=== PATIENT | male | born 1935 | race Caucasian/White ===

== ENCOUNTER 2019-12-22 09:19 | Emergency (ER) | payer OTHER ==
[~2019-12-22] VITALS: Ht 172.7 cm; Wt 83.9 kg
[~2019-12-22 09:19] MED LIST: INDOCIN50 MG; LIPITOR20 MG; PRILOSEC10 M1
[2019-12-22] MEDS ORDERED: TAMS0.4C (09:49)
[2019-12-22] MEDS ORDERED: CLONAZEPAM0.5 M1 (09:50)
[2019-12-22] MEDS ORDERED: BACTRIM DS TAB1 EACH PO (14:06)
[2019-12-22] MEDS ORDERED: CELEBREX100 MG PO (14:06)
== END 2019-12-22 14:32 | disposition home or self-care (01) ==
LOC: ER 09:19
DX: N39.0 Urinary tract infection, site not specified (principal)

== ENCOUNTER 2021-07-13 10:27 | Emergency (ER) | payer OTHER ==
[~2021-07-13] VITALS: Ht 165.1 cm; Wt 77.1 kg
[~2021-07-13 10:27] MED LIST changes: +BACTRIM DS TAB1 EACH PO; +CELEBREX100 MG PO; +CLONAZEPAM0.5 M1; +TAMS0.4C
== END 2021-07-13 11:38 | disposition home or self-care (01) ==
LOC: ER
DX: M54.32 Sciatica, left side (principal); G62.89 Other specified polyneuropathies

== ENCOUNTER 2024-01-01 09:48 | Emergency (ER) | payer OTHER ==
[~2024-01-01] VITALS: Ht 172.7 cm; Wt 68.0 kg
[2024-01-01] MEDS ORDERED: DEXAMETHASONE 4 MG TABLET PO STA (10:31)
[2024-01-01] MEDS ORDERED: NASAL MIST126 ML NASAL (12:34)
[2024-01-01] MEDS ORDERED: TYLENOL325 MG PO (12:34)
== END 2024-01-01 14:06 | disposition home or self-care (01) ==
LOC: ER 09:49
DX: S29.8XXA Other specified injuries of thorax, initial encounter (principal); W06.XXXA Fall from bed, initial encounter; Y93.89 Activity, other specified; Y92.013 Bedroom of single-family (private) house as the place of occurrence of the external cause

== ENCOUNTER 2024-01-09 18:28 | Emergency (ER) | payer OTHER ==
[~2024-01-09] VITALS: Ht 172.7 cm; Wt 74.4 kg
[~2024-01-09 18:28] MED LIST changes: +NASAL MIST126 ML NASAL; +TYLENOL325 MG PO
[2024-01-09] MEDS ORDERED: levoFLOXacin IN DEXTROSE 5 % 500MG/100ML PIGGYBAG IV ONE (19:34)
[2024-01-09] MEDS ORDERED: levoFLOXacin IN DEXTROSE 5 % 500MG/100ML PIGGYBAG IV STA (19:39)
[2024-01-09 19:56] LABS: HEMATOCRIT 36.5 % (39.0-48.0); HEMOGLOBIN 12.1 g/dL (13-16.00); MEAN CORPUSCULAR HEMOGLOBIN 28.2 pg (27.00-32.0); MEAN CORPUSCULAR HGB CONC 33.2 g/dl (32.0-36.0); PLATELET COUNT 415 K/uL (150-450); RED BLOOD COUNT 4.29 M/uL (4.00-6.00)
[2024-01-09 20:19] LABS: PH,URINE 5.5 (5.0-8.0); URINE APPEARANCE Turbid; URINE BILIRRUBIN Negative (NEGATIVE); URINE BLOOD Large; URINE COLOR Dark Yellow; URINE GLUCOSE Negative (NEGATIVE); URINE LEUKOCYTE Large; URINE NITRATE Negative
[2024-01-09 20:22] LABS: URINE EPITHELIAL CELLS 104.8 uL (0.0-38.8); URINE RBC 3931.6 uL (0.0-20.8)
[2024-01-09 20:43] LABS: ALBUMIN 2.6 gm/dL (3.4-5.0); BILIRUBIN TOTAL 0.34 mg/dL (0.3-1.2); CALCIUM 9.1 mg/dL (8.5-10.1); CREATININE SERUM 2.93 mg/dL (0.70-1.30); GFR 20.44; GLOBULINA 4.8 G/DL (2.4-3.5); POTASSIUM 4.72 mEq/L (3.5-5.1); TOTAL PROTEIN 7.4 gm/dL (6.4-8.2)
[2024-01-09 21:15] LABS: URINE BACTERIA > 9821.5 uL (0.0-1933); URINE CRYSTALS NEGATIVE /HPF; URINE MUCUS NEGATIVE; URINE PROTEIN 300 (NEGATIVE); URINE WBC > 5548.3 uL (0.0-23.2); URINE YEAST NEGATIVE /hpf
[2024-01-09] MEDS ORDERED: hydrOXYzine PAMOATE 25 MG CAPSULE PO ONE ×2 (23:26→23:30)
== END 2024-01-09 23:27 | disposition home or self-care (01) ==
LOC: ER 18:29
PROVIDERS: Emergency Medicine
DX: R53.81 Other malaise (principal); D09.0 Carcinoma in situ of bladder; N19 Unspecified kidney failure; N39.0 Urinary tract infection, site not specified; Z88.0 Allergy status to penicillin
CPT/HCPCS: 36415; 96365; 99282; J1956